=== PATIENT | female | born 1945 | race Caucasian/White ===

== ENCOUNTER → 2019-01-12 | Outpatient (REF) | payer MEDICARE ==
[~2019-01-12] MED LIST: COUM1TAB18 PO; TYLE325T5 PO; VITA500046 PO; aleve OR
[2019-01-12 16:48] LABS: ALBUMIN 3.8 GM/DL (3.2-5.2); BILIRUBIN,DIRECT 0.2 MG/DL (0.0-0.2); CHOLESTEROL RISK RATIO 3.239 (<5); TOTAL PROTEIN 6.8 GM/DL (6.4-8.2)
== END ==
LOC: M LABDRWCV 16:09
PROVIDERS: ATTEND Internal Medicine Cardiovascular Disease
DX: E78.00 Pure hypercholesterolemia, unspecified (principal)

== ENCOUNTER → 2019-09-12 | Outpatient (CLI) | payer MEDICARE ==
[2019-09-12 13:16] LABS: HEMATOCRIT 37.5 % (36.0-47.0); MEAN CORPUSCULAR VOLUME 87.6 fl (80.0-96.0); PLATELET COUNT, AUTOMATED 214 10^3/uL (150-450); RED BLOOD COUNT 4.28 10^6/uL (4.00-5.40); WHITE BLOOD COUNT 6.4 10^3/uL (4.0-10.0)
[2019-09-12 13:37] LABS: ALBUMIN 3.6 GM/DL (3.2-5.2); ALT/SGPT 22 U/L (12-78); BILIRUBIN,TOTAL 0.8 MG/DL (0.2-1.0); BLOOD UREA NITROGEN 20 MG/DL (7-18); CARBON DIOXIDE LEVEL 30 MEQ/L (21-32); CHLORIDE LEVEL 104 MEQ/L (98-107); CHOLESTEROL LEVEL 164 MG/DL (<200); CHOLESTEROL RISK RATIO 3.215 (<5); CREATININE FOR GFR 0.83 MG/DL (0.55-1.30); GLOMERULAR FILTRATION RATE > 60.0 (>39); GLUCOSE, FASTING 103 MG/DL (70-100); HDL CHOLESTEROL 51 MG/DL (>40); LDL CHOLESTEROL 98 MG/DL (<100); MAGNESIUM LEVEL 2.1 MG/DL (1.8-2.4); NON-HDL-C 113 MG/DL; POTASSIUM SERUM 4.6 MEQ/L (3.5-5.1); SODIUM LEVEL 141 MEQ/L (136-145); TOTAL PROTEIN 6.7 GM/DL (6.4-8.2); TRIGLYCERIDES LEVEL 74 MG/DL (<150)
== END ==
LOC: M LAB 11:39
PROVIDERS: ATTEND Physician Assistant
DX: E78.00 Pure hypercholesterolemia, unspecified (principal); I48.92 Unspecified atrial flutter; I11.9 Hypertensive heart disease without heart failure

== ENCOUNTER 2021-08-14 18:22 | Inpatient (IN) | payer MEDICARE ==
[~2021-08-14] VITALS: Ht 170.2 cm; Wt 66.4 kg
[2021-08-14] MEDS ORDERED: ATOR40TA75 PO ×2 (18:34→23:07)
[2021-08-14] MEDS ORDERED: ATEN25TA PO ×2 (18:34→23:07)
[2021-08-14] MEDS ORDERED: NS 1,000 ML IV SCH (18:35)
--- NOTE | 2021-08-14 19:07 | REP ---
INDICATION: Altered Mental Status. COMPARISON: 08/20/2013. TECHNIQUE: Single portable AP view of the chest was performed. FINDINGS: There is no acute infiltrate or pulmonary edema. Lungs are clear. The heart is not significantly enlarged. The mediastinal silhouette is unremarkable. The visualized osseous structures are intact.A left pacemaker is again noted. IMPRESSION: No acute pulmonary disease. <Electronically signed by David Ames > 08/14/21 0430
--- NOTE | 2021-08-14 19:17 | REPVR ---
PROCEDURE INFORMATION: Exam: CT Head Without Contrast Exam date and time: 08/14/2021 7:02 PM Age: 76 years old Clinical indication: Altered mental status/memory loss TECHNIQUE: Imaging protocol: Computed tomography of the head without contrast. Radiation optimization: All CT scans at this facility use at least one of these dose optimization techniques: automated exposure control; mA and/or kV adjustment per patient size (includes targeted exams where dose is matched to clinical indication); or iterative reconstruction. COMPARISON: No relevant prior studies available. FINDINGS: Brain: There are mild periventricular and subcortical lucencies consistent with chronic microvascular ischemic changes.The borrero-white differentiation is maintained. No hemorrhage. No edema. Cerebral ventricles: No ventriculomegaly. Paranasal sinuses: Visualized sinuses are unremarkable. No fluid levels. Mastoid air cells: Visualized mastoid air cells are well aerated. Bones/joints: Unremarkable. No acute fracture. Soft tissues: Unremarkable. IMPRESSION: No acute intracranial abnormality. Chronic microvascular ischemic changes. Electronically signed by: Manolo Duval On 08/14/2021 19:16:32 PM
--- OUTSIDE RECORDS SUMMARY | 2021-08-14 19:22 | CCD | Continuity of Care Document ---
Author Author Gemini CAMARA MD Organization Unknown Address [place] [address] Phone [phone] Care Team Providers Care Stylist Assistant Name Role Phone [facility] AUTM [phone] Problems Active Problems Provider Date Sinus node dysfunction Yo Jones NP Onset: 08/26/2013 Cardiac pacemaker in situ Yo Jones NP Onset: 013 Aftercare Unspecified Encounter Yo Jones NP Onset: 1 10/26/2012 Electrocardiogram abnormal Mercedes Lin NP Onset: 2014 Essential hypertension Mercedes Lin NP Onset: 02/06/2015 Hyperlipidemia screening Mercedes Lin NP Onset: 02/07/20 15 Obesity Mercedes Lin NP Onset: 02/06/2015 Benign hypertensive heart disease without congestive h eart failure Winston Camara MD Onset: 12/13/2018 Body mass index 30+ - obesity Winston Camara MD Onset: Atrial flutter Winston Camara MD Onset: 12/13/2018 Cardiomegaly Winston Camara MD Onset: 12/13/2018 Heart murmur Winston Camara MD Onset: 12/13/2018 Pure hypercholesterolemia Winston Camara MD Onset: 019 Aneurysm of thoracic aorta Winston Camara MD Onset: 2018 Social History Type Date Description Comments Sex Unknown ETOH Use Does not consume alcohol Tobacco Use Start: Unknown End: Unknown Patient is a former smoker up to 1/2 ppd x 11 yrs, quit in early Smoking Status Reviewed: 08/10/19 Patient is a former smoker up to 1/2 ppd x 11 yrs, quit in early Exercise Type/Frequency Does housework daily Exercise Type/Frequency Does yardwork twice a we ek Exercise Type/Frequency Does gardening 5 times a week spring to fall Exercise Type/Frequency Walks sporadically Exercise Limitations None Allergies, Adverse Reactions, Alerts Description No Known Drug Allergies Medications Active Medications SIG Qnty Indications Ordering Provide r Date Atorvastatin Calcium 40mg Tablets 1 by mouth every night at bedtime 90tabs E78.00 Winston Camara MD 08/10/2019 Atenolol 25mg Tablets 1 by mouth every day 90tabs Winston Camara MD 07/08/2019 Aspirin 81 Low Dose 81mg Chewtabs 1 by mouth every day 90units I48.92 Winston Camara MD 12/13/2018 Calcium 600/Vitamin D3 628-413mg-Qcjb Tablets 1 tab po daily Unknown 12/12/2018 Fish Oil 1200mg Capsules 1 caps by mouth once daily Unknown 12/12/2018 Multi For Her Tablets 1 by mouth every day Unknown 02/05/2015 Tylenol 325mg Tablets 1-2 po as directed, prn Unknown 08/16/2013 Immunizations Description No Information Available Vital Signs Date Vital Result Comment 08/10/2019 11:39am Weight 139.00 lb Home Weight 139lb home weight Height 63 inches 5'3" BMI (Body Mass Index) 24.6 kg/m2 Heart Rate 88 /min Regular Respiratory Rate 16 /min BP Systolic Right Arm 128 mmHg Sitting, regular c uff BP Diastolic Right Arm 72 mmHg Sitting, regular cuff BP Systolic Left Arm 126 mmHg Sitting BP Diastolic Left Arm 72 mmHg Sitting 02/08/2019 11:26am Weight 152.00 lb Home Weight 154lb home weight Height 63 inches 5'3" BMI (Body Mass Index) 26.9 kg/m2 Heart Rate 80 /min Regular Respiratory Rate 16 /min BP Systolic Right Arm 130 mmHg Sitting, regular c uff BP Diastolic Right Arm 78 mmHg Sitting, regular cuff Results Description No Information Available Procedures Date Code Description Status 05/10/2021 83999 Chronic Care MGMT 20 Mins Clinical Staff Time Per Calendar Month Completed 05/10/2021 98726 Chronic Care Management Services Ea Addl 20 Min Completed 04/23/2021 42880 Remote Pacemaker/Cardio-Defibril lator Data Acquistion Completed 04/23/2021 18021 Remote Interrogation Device Eval Pacemaker System Up To 90 Days Completed 03/08/2021 41031 Chronic Care MGMT 20 Mins Clinical Staff Time Per Calendar Month Completed 02/08/2021 05406 Chronic Care MGMT 20 Mins Clinical Staff Time Per Calendar Month Completed 01/21/2021 43219 Remote Pacemaker/Cardio-Defibril lator Data Acquistion Completed 01/21/2021 38154 Remote Interrogation Device Eval Pacemaker System Up To 90 Days Completed 01/07/2021 89261 Chronic Care MGMT 20 Mins Clinical Staff Time Per Calendar Month Completed 01/07/2021 39871 Chronic Care Management Services Ea Addl 20 Min Completed Medical Devices Description No Information Available Encounters Type Date Location Provider Dx Diagnosis Office Visit 05/10/2021 9:27a Main Office Winston Camara MD E78.00 Pure hypercholesterolemia, unspecified I11.9 Hypertensive heart disease w [facility] heart failure Office Visit 03/08/2021 1:14p Main Office Winston Camara MD E78.00 Pure hypercholesterolemia, unspecified I49.5 Sick sinus syndrome I11.9 Hypertensive heart disease w [facility] heart failure Office Visit 02/08/2021 2:56p Main Office Winston Camara MD E78.00 Pure hypercholesterolemia, unspecified I49.5 Sick sinus syndrome I11.9 Hypertensive heart disease w [facility] heart failure Office Visit 01/07/2021 1:14p Main Office Winston Camara MD E78.00 Pure hypercholesterolemia, unspecified I49.5 Sick sinus syndrome I11.9 Hypertensive heart disease w [facility] heart failure Assessments Date Code Description Provider 05/10/2021 E78.00 Pure hypercholesterolemia, unspe cified Winston Camara MD 05/10/2021 I11.9 Hypertensive heart disease witho ut heart failure Winston Camara MD 04/23/2021 Z95.0 Presence of cardiac pacemaker [facility] 03/08/2021 E78.00 Pure hypercholesterolemia, unspe cified Winston Camara MD 03/08/2021 I49.5 Sick sinus syndrome Winston gonzalez MD 03/08/2021 I11.9 Hypertensive heart disease witho ut heart failure Winston Camara MD 02/08/2021 E78.00 Pure hypercholesterolemia, unspe cified Winston Camara MD 02/08/2021 I49.5 Sick sinus syndrome Winston gonzalez MD 02/08/2021 I11.9 Hypertensive heart disease witho ut heart failure Winston Camara MD 01/21/2021 Z95.0 Presence of cardiac pacemaker [facility] 01/07/2021 E78.00 Pure hypercholesterolemia, unspe cified Winston Camara MD 01/07/2021 I49.5 Sick sinus syndrome Winston gonzalez MD 01/07/2021 I11.9 Hypertensive heart disease witho ut heart failure Winston Camara MD Plan of Treatment Future Appointment(s):* 07/08/2021 10:15 am - Marika Padilla PA-C at Main Office * 07/23/2021 11:15 am - Marika Padilla PA-C at Main Office 08/10/2019 - Marika Padilla PA-C* I11.9 Hypertensive heart disease without heart failure * R94.31 Abnormal electrocardiogram [ECG] [EKG] * I48.92 Unspecified atrial flutter * E78.00 Pure hypercholesterolemia, unspecified* New Medication:* Atorvastatin Calcium 40 mg - 1 by mouth every night at bedtime * Recommendations:* 1. Restart Atorvastatin 40mg 1 pill every evening. 2. Do fasting lab work in 1 month. * I71.2 Thoracic aortic aneurysm, without rupture * I49.5 Sick sinus syndrome * Z95.0 Presence of cardiac pacemaker * All * Follow up:* 6 month follow up. Functional Status Functional Condition Comment Date Status Independent with all ADL's Activ e Mental Status Description No Information Available Referrals Description No Information Available
--- OUTSIDE RECORDS SUMMARY | 2021-08-14 19:22 | CCD ---
Author Author [facility] Organization [facility] Address Unknown Phone Unavailable Care Team Providers Care Light Equipment Operator Name Role Phone Wale SARMIENTO MD Unavailable Unavailable Wale SARMIENTO MD Unavailable Unavailable Wale SARMIENTO MD Unavailable Unavailable Wale SARMIENTO MD Unavailable Unavailable Wale SARMIENTO MD Unavailable Unavailable Wale SARMIENTO MD Unavailable Unavailable Wale SARMIENTO MD Unavailable Unavailable Wale SARMIENTO MD Unavailable Unavailable Wale SARMIENTO MD Unavailable Unavailable Wale SARMIENTO MD Unavailable Unavailable Wale SARMIENTO MD Unavailable Unavailable Wale SARMIENTO MD Unavailable Unavailable Wale SARMIENTO MD Unavailable Unavailable Wale SARMIENTO MD Unavailable Unavailable Wale SARMIENTO MD Unavailable Unavailable Wale SARMIENTO MD Unavailable Unavailable Wale SARMIENTO MD Unavailable Unavailable Wale SARMIENTO MD Unavailable Unavailable Wale SARMIENTO MD Unavailable Unavailable Wale SARMIENTO MD Unavailable Unavailable Wale SARMIENTO MD Unavailable Unavailable Wale SARMIENTO MD Unavailable Unavailable Wale SARMIENTO MD Unavailable Unavailable Wale SARMIENTO MD Unavailable Unavailable Wale SARMIENTO MD Unavailable Unavailable Wale SARMIENTO MD Unavailable Unavailable Wale SARMIENTO MD Unavailable Unavailable Wale SARMIENTO MD Unavailable Unavailable Wale SARMIENTO MD Unavailable Unavailable Wale SARMIENTO MD Unavailable Unavailable Wale SARMIENTO MD Unavailable Unavailable Wale SARMIENTO MD Unavailable Unavailable Wale SARMIENTO MD Unavailable Unavailable Wale SARMIENTO MD Unavailable Unavailable Wale SARMIENTO MD Unavailable Unavailable Wale SARMIENTO MD Unavailable Unavailable Wale SARMIENTO MD Unavailable Unavailable Wale SARMIENTO MD Unavailable Unavailable Wale SARMIENTO MD Unavailable Unavailable Wale SARMIENTO MD Unavailable Unavailable Wale SARMIENTO MD Unavailable Unavailable Wale SARMIENTO MD Unavailable Unavailable Wale SARMIENTO MD Unavailable Unavailable Wale SARMIENTO MD Unavailable Unavailable Wale SARMIENTO MD Unavailable Unavailable Wale SARMIENTO MD Unavailable Unavailable Wale SARMIENTO MD Unavailable Unavailable Wale SARMIENTO MD Unavailable Unavailable Wale SARMIENTO MD Unavailable Unavailable Wale SARMIENTO MD Unavailable Unavailable Wale SARMIENTO MD Unavailable Unavailable Wale SARMIENTO MD Unavailable Unavailable Wale SARMIENTO MD Unavailable Unavailable Wale SARMIENTO MD Unavailable Unavailable Trickey, J Deanne PA Unavailable Unavailable Trickey, J Deanne PA Unavailable Unavailable Trickey, J Deanne PA Unavailable Unavailable Trickey, J Deanne PA Unavailable Unavailable Trickey, J Deanne PA Unavailable Unavailable Trickey, J Deanne PA Unavailable Unavailable Trickey, J Deanne PA Unavailable Unavailable Trickey, J Deanne PA Unavailable Unavailable Trickey, J Deanne PA Unavailable Unavailable Trickey, J Deanne PA Unavailable Unavailable Trickey, J Deanne PA Unavailable Unavailable Trickey, J Deanne PA Unavailable Unavailable Trickey, J Deanne PA Unavailable Unavailable Trickey, J Deanne PA Unavailable Unavailable Trickey, J Deanne PA Unavailable Unavailable Trickey, J Deanne PA Unavailable Unavailable Trickey, J Deanne PA Unavailable Unavailable Trickey, J Deanne PA Unavailable Unavailable Trickey, J Deanne PA Unavailable Unavailable Trickey, J Deanne PA Unavailable Unavailable Trickey, J Deanne PA Unavailable Unavailable Trickey, J Deanne PA Unavailable Unavailable Trickey, J Deanne PA Unavailable Unavailable Trickey, J Deanne PA Unavailable Unavailable Trickey, J Deanne PA Unavailable Unavailable Trickey, J Deanne PA Unavailable Unavailable Trickey, J Deanne PA Unavailable Unavailable Trickey, J Deanne PA Unavailable Unavailable Trickey, J Deanne PA Unavailable Unavailable Trickey, J Deanne PA Unavailable Unavailable Trickey, J Deanne PA Unavailable Unavailable Trickey, J Deanne PA Unavailable Unavailable Trickey, J Deanne PA Unavailable Unavailable Trickey, J Deanne PA Unavailable Unavailable Trickey, J Deanne PA Unavailable Unavailable Trickey, J Deanne PA Unavailable Unavailable Trickey, J Deanne PA Unavailable Unavailable Trickey, J Deanne PA Unavailable Unavailable Trickey, J Deanne PA Unavailable Unavailable Trickey, J Deanne PA Unavailable Unavailable Trickey, J Deanne PA Unavailable Unavailable Trickey, J Deanne PA Unavailable Unavailable Trickey, J Deanne PA Unavailable Unavailable Trickey, J Deanne PA Unavailable Unavailable Trickey, J Deanne PA Unavailable Unavailable Trickey, J Deanne PA Unavailable Unavailable Trickey, J Deanne PA Unavailable Unavailable Trickey, J Deanne PA Unavailable Unavailable Trickey, J Deanne PA Unavailable Unavailable Re-disclosure Warning The records that you are about to access may contain information from federally-assisted alcohol or drug abuse programs. If such information is present, then the following federally mandated warning applies: This information has been disclosed to you from records protected by federal confidentiality rules (42 CFR part 2). The federal rules prohibit you from making any further disclosure of this information unless further disclosure is expressly permitted by the written consent of the person to whom it pertains or as otherwise permitted by 42 CFR part 2. A general authorization for the release of medical or other information is NOT sufficient for this purpose. The Federal rules restrict any use of the information to criminally investigate or prosecute any alcohol or drug abuse patient.The records that you are about to access may contain highly sensitive health information, the redisclosure of which is protected by Article 27-F of the [facility] Public Health law. If you continue you may have access to information: Regarding HIV / AIDS; Provided by facilities licensed or operated by the [facility] Office of Mental Health; or Provided by the [facility] Office for People With Developmental Disabilities. If such information is present, then the following [facility] mandated warning applies: This information has been disclosed to you from confidential records which are protected by state law. State law prohibits you from making any further disclosure of this information without the specific written consent of the person to whom it pertains, or as otherwise permitted by law. Any unauthorized further disclosure in violation of state law may result in a fine or shelter sentence or both. A general authorization for the release of medical or other information is NOT sufficient authorization for further disc losure. Family History Family Member Name Family Member Gender Family Member Status Date o f Status Description Data Source(s) Unknown Male Problem [facility] ([facility] Encounters Encounter Providers Location Date Indications Data Source(s ) Office Visit Attender: JUDE SARMIENTO MD Main Office 05/10/2021 09:27:0 0 AM EDT [facility] ([facility]) Office Visit Attender: JUDE SARMIENTO MD Main Office 03/08/2021 01:14:0 0 PM EDT [facility] ([facility]) Office Visit Attender: JUDE SARMIENTO MD Main Office 02/08/2021 02:56:0 0 PM EDT [facility] ([facility]) Office Visit Attender: JUDE SARMIENTO MD Main Office 01/07/2021 01:14:0 0 PM EDT [facility] ([facility]) Office Visit Attender: JUDE SARMIENTO MD Main Office 11/28/2020 06:11:0 0 AM EST [facility] ([facility]) Office Visit Attender: JUDE SARMIENTO MD Main Office 10/22/2020 12:57:0 0 PM EST [facility] ([facility]) Office Visit Attender: JUDE SARMIENTO MD Main Office 09/12/2020 07:52:0 0 AM EST [facility] ([facility]) Office Visit Attender: JUDE SARMIENTO MD Main Office 08/15/2020 10:25:0 0 AM EDT [facility] ([facility]) Office Visit Attender: Deanne JOSEPH Main office - [facility] 08/10/2020 08:00:00 AM EDT [facility] ([facility] Office Visit Attender: JUDE SARMIENTO MD Main Office 07/12/2020 02:34:0 0 PM EDT [facility] ([facility]) Office Visit Attender: JUDE SARMIENTO MD Main Office 06/15/2020 08:20:0 0 AM EDT [facility] ([facility]) Medications Medication Brand Name Start Date Product Form Dose Route Admi nistrative Instructions Pharmacy Instructions Status Indications Reaction Description Data Source(s) atorvastatin 40 MG Oral Tablet ATORVASTATIN CALCIUM 07/04/2021 1 2:00:00 AM EDT tablet 90 TAKE ONE TABLET BY MOUTH AT BEDT SHIVAM TAKE ONE TABLET BY MOUTH AT BEDTIME SOLD: 07/12/2021 [facility] atorvastatin 40 MG Oral Tablet ATORVASTATIN CALCIUM 09/26/2020 1 2:00:00 AM EST tablet 90 TAKE ONE TABLET BY MOUTH AT BEDT SHIVAM TAKE ONE TABLET BY MOUTH AT BEDTIME SOLD: 12/20/2020 [facility] 25 mg 09/26/2020 12:00:00 AM EST tablet 90 TAKE ONE TABLET BY MOUTH EVERY DAY TAKE ONE TABLET BY MOUTH EVERY DAY SOLD: 04/01/2021 [facility] atorvastatin 40 MG Oral Tablet ATORVASTATIN CALCIUM 09/26/2020 1 2:00:00 AM EST tablet 90 TAKE ONE TABLET BY MOUTH AT BEDT SHIVAM TAKE ONE TABLET BY MOUTH AT BEDTIME SOLD: 09/27/2020 [facility] 25 mg 09/26/2020 12:00:00 AM EST tablet 90 TAKE ONE TABLET BY MOUTH EVERY DAY TAKE ONE TABLET BY MOUTH EVERY DAY SOLD: 07/01/2021 [facility] atorvastatin 40 MG Oral Tablet ATORVASTATIN CALCIUM 09/26/2020 1 2:00:00 AM EST tablet 90 TAKE ONE TABLET BY MOUTH AT BEDT SHIVAM TAKE ONE TABLET BY MOUTH AT BEDTIME SOLD: 04/01/2021 [facility] Atenolol 25 MG Oral Tablet ATENOLOL 09/26/2020 12:00:00 AM EST tablet 90 TAKE ONE TABLET BY MOUTH EVERY DAY TAKE ONE TABLET BY MOUTH EVERY DAY SOLD: 12/20/2020 [facility] Atenolol 25 MG Oral Tablet ATENOLOL 09/26/2020 12:00:00 AM EST tablet 90 TAKE ONE TABLET BY MOUTH EVERY DAY TAKE ONE TABLET BY MOUTH EVERY DAY SOLD: 09/27/2020 [facility] atorvastatin 40 MG Oral Tablet ATORVASTATIN CALCIUM 08/11/2019 1 2:00:00 AM EDT tablet 90 TAKE ONE TABLET BY MOUTH AT BEDT SHIVAM TAKE ONE TABLET BY MOUTH AT BEDTIME SOLD: 06/25/2020 [facility] 25 mg 07/08/2019 12:00:00 AM EDT tablet 90 TAKE ONE TABLET BY MOUTH EVERY DAY TAKE ONE TABLET BY MOUTH EVERY DAY SOLD: 06/25/2020 [facility] Insurance Providers Payer name Policy type / Coverage type Policy ID Covered green party ID Covered green party's relationship to jones Policy Jones Plan Information Medicare (Part B) Medicare Primary [id number] Self 1 [id number] Medicare (Part B) Medicare Primary [id number] Self 1 [id number] Medicare (Part B) Medicare Primary [id number] Self 1 [id number] Medicare Medicare Primary [id number] Self [employer] 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 Self [id number] Medicare Part B Medicare Primary [id number] Self [employer] Commercial [id number] Self AARP HEALTH CARE OPTIONS [id number] SP [id number] MEDICARE [id number] SP [id number] D AARP HEALTH CARE OPTIONS [id number] SP [id number] Medicare Medicare Primary [id number] Self A[employer] Healthcare Options Medigap Part B [id number] Self AARP S [id number] S [id number] AARP S [id number] S [id number] 2 MEDICARE P [id number] S [id number] D WELLCARE [id number] SP [id number] Well[employer] MCR - To Ppo Commercial [id number] [facility] [id number] [facility]-Medicare Part B [id number] ANSI-Commercial [id number] Problems, Conditions, and Diagnoses No Information Surgeries/Procedures Procedure Description Date Indications Data Source(s) Chronic Care Management Services Ea Addl 20 Min 2020 12:00:00 AM EDT [facility] ([facility]) Chronic Care MGMT 20 Mins Clinical Staff Time Per Calendar [facility] 05/10/2021 12:00:00 AM EDT [facility] ([facility] INTERROGATION EVAL REMOTE </90 D 1/2/LINE ANALYST LEAD PM 04/23 12:00:00 AM EDT [facility] ([facility]) INTERROGATION REMOTE </90 D MEDICAL LABORATORY TECHNICAL OFFICER REVIEW 04/23/20 12:00:00 AM EDT [facility] ([facility]) Chronic Care MGMT 20 Mins Clinical Staff Time Per Calendar [facility] 03/08/2021 12:00:00 AM EDT [facility] ([facility] Chronic Care MGMT 20 Mins Clinical Staff Time Per Calendar [facility] 02/08/2021 12:00:00 AM EDT [facility] ([facility] INTERROGATION EVAL REMOTE </90 D 1/2/LINE ANALYST LEAD PM 01/21 12:00:00 AM EDT [facility] ([facility]) INTERROGATION REMOTE </90 D MEDICAL LABORATORY TECHNICAL OFFICER REVIEW 01/22/20 12:00:00 AM EDT [facility] ([facility]) Chronic Care Management Services Ea Addl 20 Min 2020 12:00:00 AM EDT [facility] ([facility]) Chronic Care MGMT 20 Mins Clinical Staff Time Per Calendar [facility] 01/07/2021 12:00:00 AM EDT [facility] ([facility]) Chronic Care MGMT 20 Mins Clinical Staff Time Per Calendar [facility] 11/28/2020 12:00:00 AM EST [facility] ([facility] Chronic Care MGMT 20 Mins Clinical Staff Time Per Calendar [facility] 10/22/2020 12:00:00 AM EST [facility] ([facility] INTERROGATION EVAL REMOTE </90 D 1/2/LINE ANALYST LEAD PM 10/18 12:00:00 AM EST [facility] ([facility]) INTERROGATION REMOTE </90 D MEDICAL LABORATORY TECHNICAL OFFICER REVIEW 10/18/20 12:00:00 AM EST [facility] ([facility]) INTERROGATION EVAL REMOTE </90 D 1/2/LINE ANALYST LEAD PM 07/19 12:00:00 AM EDT [facility] ([facility]) INTERROGATION REMOTE </90 D MEDICAL LABORATORY TECHNICAL OFFICER REVIEW 07/19/20 12:00:00 AM EDT [facility] ([facility]) Results No Information Social History No Information
--- OUTSIDE RECORDS SUMMARY | 2021-08-14 19:22 | CCD | Continuity of Care Document ---
Author Author Gemini CAMARA MD Organization Unknown Address [place] [address] Phone [phone] Care Team Providers Care Day Care Supervisor Name Role Phone [facility] AUTM [phone] Problems Active Problems Provider Date Sinus node [...] Winston Camara MD 12/13/2018 Calcium 600/Vitamin D3 [id number] Tablets 1 tab po daily Unknown 12/12/2018 [...] Available Procedures Date Code Description Status 05/10/2021 50559 Chronic Care MGMT 20 Mins Clinical Staff Time Per Calendar Month Completed 05/10/2021 41979 Chronic Care Management Services Ea Addl 20 Min Completed 04/23/2021 18139 Remote Pacemaker/Cardio-Defibril lator Data Acquistion Completed 04/23/2021 87190 Remote Interrogation Device Eval Pacemaker System Up To 90 Days Completed 03/08/2021 18359 Chronic Care MGMT 20 Mins Clinical Staff Time Per Calendar Month Completed 02/08/2021 22326 Chronic Care MGMT 20 Mins Clinical Staff Time Per Calendar Month Completed 01/21/2021 12503 Remote Pacemaker/Cardio-Defibril lator Data Acquistion Completed 01/21/2021 04864 Remote Interrogation Device Eval Pacemaker System Up To 90 Days Completed 01/07/2021 92723 Chronic Care MGMT 20 Mins Clinical Staff Time Per Calendar Month Completed 01/07/2021 34546 Chronic Care Management Services Ea Addl 20 Min Completed Medical Devices Description No Information Available Encounters Type Date Location Provider Dx Diagnosis Office Visit 05/10/2021 9:27a Main Office Winston Camara MD E78.00 Pure hypercholesterolemia, unspecified I11.9 Hypertensive heart disease w [facility] heart failure Office Visit 03/08/2021 1:14p Main Office Winston Camara MD E78.00 Pure hypercholesterolemia, unspecified I49.5 Sick sinus syndrome I11.9 Hypertensive heart disease w [facility] heart failure Office Visit 02/08/2021 2:56p Main Office Winston Camara MD E78.00 Pure hypercholesterolemia, unspecified I49.5 Sick sinus syndrome I11.9 Hypertensive heart disease w [facility] heart failure Office Visit 01/07/2021 1:14p Main Office Winston Camara MD E78.00 Pure hypercholesterolemia, unspecified I49.5 Sick sinus syndrome I11.9 Hypertensive heart disease w [facility] heart failure Assessments Date Code Description Provider [...]
[2021-08-14 19:41] LABS: BASO # 0.1 10^3/uL (0.0-0.2); BASO % 0.4 % (0.0-1.0); HEMATOCRIT 31.8 % (36.0-47.0); HEMOGLOBIN 9.7 g/dl (12.0-15.5); LYMPH # 0.7 10^3/uL (1.5-5.0); LYMPH % 4.6 % (24.0-44.0); MEAN CORPUSCULAR HEMOGLOBIN 24.6 pg (27.0-33.0); MEAN CORPUSCULAR HGB CONC 30.5 g/dl (32.0-36.5); MEAN CORPUSCULAR VOLUME 80.5 fl (80.0-96.0); MONO # 0.4 10^3/uL (0.0-0.8); MONO % 2.6 % (2.0-8.0); NEUTROPHILS # 14.1 10^3/uL (1.5-8.5); NEUTROPHILS % 91.8 % (36.0-66.0); PLATELET COUNT, AUTOMATED 430 10^3/uL (150-450); RED BLOOD COUNT 3.95 10^6/uL (4.00-5.40); WHITE BLOOD COUNT 15.3 10^3/uL (4.0-10.0)
[2021-08-14 20:08] LABS: ACETAMINOPHEN LEVEL < 2.0 UG/ML (10.0-30.0); ALBUMIN 2.7 GM/DL (3.2-5.2); ALT/SGPT 15 U/L (12-78); BILIRUBIN,DIRECT 0.2 MG/DL (0.0-0.2); BILIRUBIN,TOTAL 0.7 MG/DL (0.2-1.0); BLOOD UREA NITROGEN 16 MG/DL (7-18); CALCIUM LEVEL 11.1 MG/DL (8.8-10.2); CARBON DIOXIDE LEVEL 29 MEQ/L (21-32); CHLORIDE LEVEL 103 MEQ/L (98-107); CK-MB VALUE MASS < 1.0 NG/ML (<3.6); CPK CREATINE PHOSPHOKINASE 18 U/L (26-192); CREATININE FOR GFR 0.78 MG/DL (0.55-1.30); ETHYL ALCOHOL (ETHANOL) < 0.003 % (0.000-0.010); GLOMERULAR FILTRATION RATE > 60.0 (>39); GLUCOSE, FASTING 132 MG/DL (70-100); MB/CK RELATIVE INDEX 5.56 (< OR =4); SALICYLATE LEVEL < 1.7 MG/DL (5.0-30.0); SODIUM LEVEL 138 MEQ/L (136-145); TOTAL PROTEIN 6.6 GM/DL (6.4-8.2); TROPONIN I < 0.02 NG/ML (< 0.10)
[2021-08-14 20:33] LABS: RSV AMPLIFICATION NEGATIVE (NEGATIVE)
--- NOTE | 2021-08-14 20:49 | HPEPDOC ---
[facility] Medical History & Physical Date of Admission Aug 14, 2021 Date of Service: Aug 14, 2021 Primary Care Physician: WANDA BLANCA PA-C Attending Physician: UBALDO GONZALES MD History and Physical TIME OF SERVICE: 929pm CHIEF COMPLAINT: seizure HISTORY OF PRESENT ILLNESS: The history was obtained from INLETTER Nnea, the patient couldnt recall all of the events leading to her arrival in the hospital. a 76 yr old F was diagnosed with a seizure disorder shortly after having right total hip arthroplasty in 2012. Based on consultation note it was felt that the seizures were likely due to the acute stress of the surgery and possibly sinus node dysfunction; the plan was to obtain an EEG and hold of starting seizure meds if the EEG was unremarkable. The discharge summary from the same admission was brief and didnt mention if the patient was discharged with anti-epileptic medications. Today, while seated in a chair son saw her have convulsions with repeated episodes of hitting the back of her head on the recliner that she was sitting in. When EMS arrived the patient was confused and her FSBS was 149. At the time of my as sessment was alert and conversant, but had lapses in her memory. The CHIEF NURSING EXECUTIVE informed Etienne that the patient had a large mass protruding out of her vagina; when I asked the patient about the mass she didnt seem aware of it but admitted to occasionally having vaginal bleeding. REVIEW OF SYSTEMS: incomplete because the patient has difficulties remembering PAST MEDICAL/ SURGICAL HISTORY: (8 vaginal deliveries), Seizure disorder (2012), sinus node dysfunction/ sinus arrest s/p dual chamber pacemaker placement (2012), essential HTN, DLP, Bakers cyst at left knee, Osteoporosis ( chronic thoracic and lumbar vertebral fx), newly diagnosed bilateral vulvar masses, right total hip arthroplasty (2012) FAMILY HISTORY: (per chart review) mother had cancer, her oldest daughter and y oungest son , three of her children have seizure disorder (one of them developed the seizures after a head injury) SOCIAL HISTORY: She quit smoking, one of her sons recently moved in with her, 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 HOME MEDICATIONS: Please see below. PHYSICAL EXAMINATION: Vital Signs Date Time Temp Pulse Resp B/P (MAP) Pulse Ox O2 Delivery O2 Flow Rate FiO2 08/14/21 18:36 133/59 (83) 08/14/21 18:37 116 98 08/14/21 18:38 98.2 08/14/21 19:18 16 Room Air GENERAL APPEARANCE: slim build and developed/ NAD HEENT: EOMI / MMM&P CARDIOVASCULAR: RRR/NMRG / no BLE edema LUNGS: CTAB on RA ABDOMEN: contour scaphoid/ soft & NT w palpation MUSCULOSKELETAL: temporal wasting / ADAN x 4 extremities / muscle wasting at quadriceps INTEGUMENT: she is not flushed, pale or diaphoretic NEUROLOGICAL: CN 2-12 grossly intact except hearing / face symmetrical / speech not dysarthric / strength 5/5 except at left hip flexors 4 PSYCHIATRIC: A&O / able to understand and follow all commands LABORATORY DATA: IMAGING: Chest xray IMPRESSION: No acute pulmonary disease. CT head IMPRESSION: No acute intracranial abnormality. Chronic microvascular ischemic changes. CT abd/pelvis FINDINGS: Liver: Normal. No mass. Gallbladder and bile ducts: Normal. No calcified stones. No ductal dilation. Pancreas: Normal. No ductal dilation. Spleen: Normal. No splenomegaly. Adrenal glands: Normal. No mass. Kidneys and ureters: Multiple cysts in the right kidney with the largest measuring 1.6 cm in the midpole region. Multiple cysts in the left kidney with the largest measuring 1.8 cm at the upper pole. Stomach and bowel: Diverticulosis of the sigmoid colon. Appendix: No evidence of appendicitis. Intraperitoneal space: Unremarkable. No free air. No significant fluid collec tion. Vasculature: Unremarkable. No abdominal aortic aneurysm. Lymph nodes: Unremarkable. No enlarged lymph nodes. Urinary bladder: Unremarkable as visualized. Reproductive: There is lobulated large necrotic mass in bilateral vulva extending to the subcutaneous tissues measuring approximately 9.1 x 9.5 x 11 cm. Bones/joints: Right total hip arthroplasty. Chronic compression fractures of the thoracic and lumbar vertebra. Diffuse demineralization of the bones. Soft tissues: Unremarkable. CT chest IMPRESSION: No acute abnormality. Moderate size hiatal hernia. MICROBIOLOGY: Respiratory panel negative ASSESSMENT: is a 76 yr old F w a hx of Seizure disorder, sinus node dysfunction/ sinus arrest s/p dual chamber pacemaker placement, HTN, DLP, Osteoporosis & newly diagnosed bilateral vulvar masses who is admitted for evaluation of seizures. PLAN: 1 Seizure disorder -Its unclear what triggered this acute episode Plan: fall precautions/ seizure precautions/ frequent neuro checks / f/u prolactin, UA, EEG / will ask the day time team to place an Neuro consult and ask if the patient needs an MRI brain w gadolinium to rule out mass / load with Keppra 1000mg IV then c/w 500 BID / Ativan 2mg IV Q2H PRN break through seizures 2 Encephalopathy - 2/2 Todds Paresis vs Dementia vs symptomatic hypercalcemia vs other cause TBD Plan: anti-epileptics / neurochecks / if her mental status doesnt improve she will need formal neurocognitive testing (MOCA ) / manage hypercalcemia 3 SIRS Plan: f/u blood cx, UA and lactic acid 4 Vulvar Masses -Not sure if this is the primary or she has a plasmacytoma Plan: will ask the day time team to consult Gyne 5 Normocytic Hypochromic anemia Plan: f/u Iron studies and stool occult 6 Mild Hypercalcemia Possibly due to plasmacytoma, primary hyperparathyroidism or malignancy Plan: f/u Phosphorus, PTH / repeat Ca++ / start NS @ 125ml/H / low Ca diet 7 Essential HTN Plan: atenolol 8 DLP Plan:c/w statin 9 Osteoporosis -Diagnosis confirmed because of her history of multiple chronic vertebral fractures -She also has high serum calcium Plan: f/u serum Vitamin D / because she has vertebral fractures we will check SPEP to screen for plasmacytoma or MM / start Oscal / she will need to with her PCP for a DEXA Scan (if her T score is -3 or lower, in addition to a bisphosphonate she will need to be started on Teriparatide) 10 Sarcopenia BMI is 19.6 Plan: f/u pre-albumin / the day time team may consider placing a fruit i farmworker consult DVT px w Heparin Disposition: home after more than 2 midnights stay (kimberly Farley [phone]) Home Medications Scheduled Atenolol (Atenolol) 25 Mg Tablet, 25 MG PO DAILY Atorvastatin Calcium (Atorvastatin Calcium) 40 Mg Tablet, 40 MG PO DAILY Levetiracetam (Keppra) 250 Mg Tablet, 500 MG PO BID Multivitamins (Thera M Plus Tablet) 1 Each Tablet, 1 TAB PO DAILY Sulfamethoxazole/Trimethoprim (Bactrim Ds Tablet) 1 Each Tablet, 1 TAB PO BID Allergies Coded Allergies: No Known Allergies (Unverified , 08/15/13) A-FIB/CHADSVASC A-FIB History Current/History of A-Fib/PAF?: No Current PO Anticoag Therapy: No UBALDO GONZALES MD Aug 14, 2021 20:49
[2021-08-14] MEDS ORDERED: ACETAMINOPHEN TAB 650MG DOSE (2X325MG) PO PRN (20:50)
[2021-08-14] MEDS ORDERED: MAALOX 30 ML SUSP *UDC PO PRN (20:50)
[2021-08-14] MEDS ORDERED: MOM 30ML SUSPENSION UDC PO PRN (20:50)
[2021-08-14] MEDS ORDERED: levETIRAcetam INJection 1,000 MG in D5W 100 ML IV ONE (20:50)
[2021-08-14] MEDS ORDERED: LIDOCAINE 2% 5ML JELLY UROJET TOP ONE (20:50)
--- OUTSIDE RECORDS SUMMARY | 2021-08-14 21:01 | CCD ---
Author Author [facility] Organization [facility] Address Unknown Phone Unavailable Care Team Providers Care Rough Patcher Name Role Phone Wale SARMIENTO MD Unavailable [...] is protected by Article 27-F of the [facility] Public Health law. If you continue you may have access to information: Regarding HIV / AIDS; Provided by facilities licensed or operated by the [facility] Office of Mental Health; or Provided by the [facility] Office for People With Developmental Disabilities. If such information is present, then the following [facility] mandated warning applies: This information has been [...] law may result in a fine or mcc sentence or both. A general authorization for the release of medical or other information is NOT sufficient authorization for further disc losure. Family History Family Member Name Family Member Gender Family Member Status Date o f Status Description Data Source(s) Unknown Male Problem [facility] ([facility]) Encounters Encounter Providers Location Date Indications Data Source(s ) Office Visit Attender: JUDE SARMIENTO MD Main Office 05/10/2021 09:27:0 0 AM EDT [facility] ([facility]) Office Visit Attender: JUDE SARMIENTO MD Main Office 03/08/2021 01:14:0 0 PM EDT [facility] ([facility]) Office Visit Attender: JUDE SARMIENTO MD Main Office 02/08/2021 02:56:0 0 PM EDT [facility] ([facility]) Office Visit Attender: JUDE SARMIENTO MD Main Office 01/07/2021 01:14:0 0 PM EDT [facility] ([facility]) Office Visit Attender: JUDE SARMIENTO MD Main Office 11/28/2020 06:11:0 0 AM EST [facility] ([facility]) Office Visit Attender: JUDE SARMIENTO MD Main Office 10/22/2020 12:57:0 0 PM EST [facility] ([facility]) Office Visit Attender: JUDE SARMIENTO MD Main Office 09/12/2020 07:52:0 0 AM EST [facility] ([facility]) Office Visit Attender: JUDE SARMIENTO MD Main Office 08/15/2020 10:25:0 0 AM EDT [facility] ([facility]) Office Visit Attender: Deanne JOSEPH Main office - [facility] 08/10/2020 08:00:00 AM EDT [facility] ([facility]) Office Visit Attender: JUDE SARMIENTO MD Main Office 07/12/2020 02:34:0 0 PM EDT [facility] ([facility]) Office Visit Attender: JUDE SARMIENTO MD Main Office 06/15/2020 08:20:0 0 AM EDT [facility] ([facility]) Medications Medication Brand Name Start Date Product [...] type / Coverage type Policy ID Covered democrat ID Covered democrat's relationship to jones Policy Jnoes Plan Information Medicare (Part B) Medicare Primary [id number] Self 1 [id number] Medicare (Part B) Medicare Primary [id number] Self 1 [id number] Medicare (Part B) Medicare Primary [id number] Self 1 [id number] Medicare Medicare Primary [id number] Self ANSI-Health Maintenance Organization (HM O) [id number] [employer] MCR - To Ppo Commercial [id number] Self [id number] Well[employer] MCR - To Ppo Commercial [id number] Self [id number] [employer] Medigap Part B [id number] Self [id number] Medicare Part B Medicare Primary [id number] Self [id number] [employer] Medigap Part B [id number] Self [id number] Medicare Part B Medicare Primary [id number] Self [id number] Medicare Part B Medicare Primary [id number] Self A[employer] Commercial [id number] Self AARP HEALTH CARE OPTIONS [id number] SP [id number] MEDICARE [id number] SP [id number] D AARP HEALTH CARE OPTIONS [id number] SP [id number] Medicare Medicare Primary [id number] Self Aarp Healthcare Options Medigap Part B [id number] Self AARP S [id number] S [id number] AARP S [id number] S [id number] MEDICARE P [id number] S [id number] D WELLCARE [id number] SP [id number] Well[employer] MCR - To Ppo Commercial [id number] [facility] [id number] [facility]-Medicare Part B [id number] ANSI-Commercial [id number] Problems, Conditions, and Diagnoses No Information Surgeries/Procedures Procedure Description Date Indications Data Source(s) Chronic Care Management Services Ea Addl 20 Min 2020 12:00:00 AM EDT [facility] ([facility]) Chronic Care MGMT 20 Mins Clinical Staff Time Per Calendar M [facility] 05/10/2021 12:00:00 AM EDT [facility] ([facility]) INTERROGATION EVAL REMOTE </90 D 1/2/MUSIC SPECIALIST LEAD PM 04/23 12:00:00 AM EDT [facility] ([facility]) INTERROGATION REMOTE </90 D SALES TEACHER REVIEW 04/23/20 12:00:00 AM EDT [facility] ([facility]) Chronic Care MGMT 20 Mins Clinical Staff Time Per Calendar M [facility] 03/08/2021 12:00:00 AM EDT [facility] ([facility]) Chronic Care MGMT 20 Mins Clinical Staff Time Per Calendar M [facility] 02/08/2021 12:00:00 AM EDT [facility] ([facility]) INTERROGATION EVAL REMOTE </90 D 1/2/MUSIC SPECIALIST LEAD PM 01/21 12:00:00 AM EDT [facility] ([facility]) INTERROGATION REMOTE </90 D SALES TEACHER REVIEW 01/22/20 12:00:00 AM EDT [facility] ([facility]) Chronic Care Management Services Ea Addl 20 Min 2020 12:00:00 AM EDT [facility] ([facility]) Chronic Care MGMT 20 Mins Clinical Staff Time Per Calendar M [facility] 01/07/2021 12:00:00 AM EDT [facility] ([facility]) Chronic Care MGMT 20 Mins Clinical Staff Time Per Calendar M [facility] 11/28/2020 12:00:00 AM EST [facility] ([facility]) Chronic Care MGMT 20 Mins Clinical Staff Time Per Calendar M [facility] 10/22/2020 12:00:00 AM EST [facility] ([facility]) INTERROGATION EVAL REMOTE </90 D 1/2/MUSIC SPECIALIST LEAD PM 10/18 12:00:00 AM EST [facility] ([facility]) INTERROGATION REMOTE </90 D SALES TEACHER REVIEW 10/18/20 12:00:00 AM EST [facility] ([facility]) INTERROGATION EVAL REMOTE </90 D 1/2/MUSIC SPECIALIST LEAD PM 07/19 12:00:00 AM EDT [facility] ([facility]) INTERROGATION REMOTE </90 D SALES TEACHER REVIEW 07/19/20 12:00:00 AM EDT [facility] ([facility]) Results No Information Social History No Information
[2021-08-14] MEDS ORDERED: ISOVUE-370 76% 100ML VIAL As Ordered ONE (21:10)
[2021-08-14] MEDS ORDERED: VANCOMYCIN HCL 1,000 MG, VIAL MATE ADAPTER 1 EACH in NS 250 ML IV SCH (21:20)
[2021-08-14 21:33] LABS: AMPHETAMINES LEVEL URINE NEGATIVE (NEGATIVE); BARBITURATES URINE NEGATIVE (NEGATIVE); BENZODIAZEPINES URINE NEGATIVE (NEGATIVE); CANNABINOIDS URINE NEGATIVE (NEGATIVE); COCAINE METABOLITE URINE NEGATIVE (NEGATIVE); METHADONE URINE NEGATIVE (NEGATIVE); OPIATES URINE NEGATIVE (NEGATIVE); PHENCYCLIDINE URINE NEGATIVE (NEGATIVE)
[2021-08-14] MEDS: NS 1,000 ML IV SCH (22:26)
--- NOTE | 2021-08-14 22:43 | REPVR ---
PROCEDURE INFORMATION: Exam: CT Abdomen And Pelvis With Contrast Exam date and time: 08/14/2021 10:02 PM Age: 76 years old Clinical indication: Mass, lump, or swelling; Lower; Additional info: Cervical CA TECHNIQUE: Imaging protocol: Computed tomography of the abdomen and pelvis with contrast. Radiation optimization: All CT scans at this facility use at least one of these dose optimization techniques: automated exposure control; mA and/or kV adjustment per patient size (includes targeted exams where dose is matched to clinical indication); or iterative reconstruction. Contrast material: ISOVUE 370; Contrast volume: 100 ml; Contrast route: INTRAVENOUS (IV); COMPARISON: CR PORTABLE CHEST X-RAY 08/14/2021 6:49 PM FINDINGS: Liver: Normal. No mass. Gallbladder and bile ducts: Normal. No calcified stones. No ductal dilation. Pancreas: Normal. No ductal dilation. Spleen: Normal. No splenomegaly. Adrenal glands: Normal. No mass. Kidneys and ureters: Multiple cysts in the right kidney with the largest measuring 1.6 cm in the midpole region. Multiple cysts in the left kidney with the largest measuring 1.8 cm at the upper pole. Stomach and bowel: Diverticulosis of the sigmoid colon. Appendix: No evidence of appendicitis. Intraperitoneal space: Unremarkable. No free air. No significant fluid collection. Vasculature: Unremarkable. No abdominal aortic aneurysm. Lymph nodes: Unremarkable. No enlarged lymph nodes. Urinary bladder: Unremarkable as visualized. Reproductive: There is lobulated large necrotic mass in bilateral vulva extending to the subcutaneous tissues measuring approximately 9.1 x 9.5 x 11 cm. Bones/joints: Right total hip arthroplasty. Chronic compression fractures of the thoracic and lumbar vertebra. Diffuse demineralization of the bones. Soft tissues: Unremarkable. 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 COMMENTS: Consistent with the [employer]'s Incidental Findings Committee white paper (J Am Vikas Radiol 2018): Any incidental renal lesion less than 1 cm or classified as too small to characterize, or any incidental cystic renal lesion characterized as simple-appearing, is likely benign. No follow-up imaging is recommended for these lesions per consensus recommendations based on imaging criteria. Electronically signed by: Manolo Duval On 08/14/2021 22:43:11 PM
[2021-08-14] MEDS: PIPERACILLIN/TAZOBACTAM SOD 4.5 GM in D5W MINI-BAG PLUS 50 ML IV SCH (22:44)
--- NOTE | 2021-08-14 22:49 | REPVR ---
PROCEDURE INFORMATION: Exam: CT Chest With Contrast; Diagnostic Exam date and time: 08/14/2021 10:02 PM Age: 76 years old Clinical indication: Other: Cervical CA TECHNIQUE: Imaging protocol: Diagnostic computed tomography of the chest with contrast. Radiation optimization: All CT scans at this facility use at least one of these dose optimization techniques: automated exposure control; mA and/or kV adjustment per patient size (includes targeted exams where dose is matched to clinical indication); or iterative reconstruction. Contrast material: ISOVUE 370; Contrast volume: 100 ml; Contrast route: INTRAVENOUS (IV); COMPARISON: CR PORTABLE CHEST X-RAY 08/14/2021 6:49 PM FINDINGS: Lungs: Calcified granuloma at the left lung base. Pleural spaces: Unremarkable. No pneumothorax. No pleural effusion. Heart: Unremarkable. No cardiomegaly. No pericardial effusion. Aorta: Unremarkable. No aortic aneurysm. Lymph nodes: Unremarkable. No enlarged lymph nodes. Diaphragm: Moderate size hiatal hernia. Bones/joints: Unremarkable. No acute fracture. Soft tissues: Unremarkable. IMPRESSION: No acute abnormality. Moderate size hiatal hernia. Electronically signed by: Manolo Duval On 08/14/2021 22:48:32 PM
[2021-08-14] MEDS ORDERED: VANCOMYCIN HCL 750 MG, VIAL MATE ADAPTER 1 EACH in NS 250 ML IV ONE (23:00)
[2021-08-14] MEDS ORDERED: VITMTA PO (23:07)
[2021-08-14] MEDS ORDERED: HOME MED LIST COMPLETE! XX SCH (23:10)
[2021-08-15] MEDS ORDERED: VANCOMYCIN HCL 500 MG in D5W MINI-BAG PLUS 100 ML IV ONE ×2
[2021-08-15] MEDS: HEPARIN SOD (PORCINE) 5000UNITS/ML 1ML VIAL/SYRINGE SC SCH ×3 (00:52→21:04)
[2021-08-15] MEDS ORDERED: LORazepam 2 MG/ML VIAL IV PRN (01:00)
[2021-08-15 02:30] VITALS: BP 116/59
[2021-08-15] MEDS: PIPERACILLIN/TAZOBACTAM SOD 4.5 GM in D5W MINI-BAG PLUS 50 ML IV SCH ×4 (02:30→23:05)
[2021-08-15 03:04] LABS: FERRITIN 76 NG/ML (8-252); IRON (FE) 15 UG/DL (50-170); PERCENT SATURATION 6.9 % (13.2-45.0); PHOSPHORUS LEVEL 3.4 MG/DL (2.5-4.9); TOTAL IRON BINDING CAPACITY 216 UG/DL (250-450)
[2021-08-15 04:00] VITALS: BP 103/56
[2021-08-15] MEDS: NS 1,000 ML IV SCH ×3 (06:07→21:59)
[2021-08-15 06:21] LABS: ALBUMIN 2.4 GM/DL (3.2-5.2); ALT/SGPT 11 U/L (12-78); BLOOD UREA NITROGEN 13 MG/DL (7-18); CALCIUM LEVEL 11.6 MG/DL (8.8-10.2); CARBON DIOXIDE LEVEL 33 MEQ/L (21-32); CHLORIDE LEVEL 108 MEQ/L (98-107); CREATININE FOR GFR 0.81 MG/DL (0.55-1.30); GLOMERULAR FILTRATION RATE > 60.0 (>39); GLUCOSE, FASTING 107 MG/DL (70-100); POTASSIUM SERUM 3.8 MEQ/L (3.5-5.1); SODIUM LEVEL 141 MEQ/L (136-145); TOTAL PROTEIN 5.9 GM/DL (6.4-8.2)
[2021-08-15 08:00] VITALS: BP 103/56
[2021-08-15] MEDS: levETIRAcetam 250MG TABLET (KEPPRA) PO SCH ×2 (08:28→21:04)
[2021-08-15] MEDS: ATORVASTATIN 20 MG TAB PO SCH (08:28)
[2021-08-15] MEDS: VANCOMYCIN HCL 750 MG, VIAL MATE ADAPTER 1 EACH in NS 250 ML IV SCH ×2 (08:28→21:03)
[2021-08-15] MEDS: atenoloL 25 MG TAB PO SCH (08:29)
[2021-08-15] MEDS ORDERED: PREVNAR 13 VACCINE SYRINGE IM ONE (09:00)
[2021-08-15] MEDS ORDERED: FLUBLOK(EGG FREE)(QUAD)INFLUENZA VACC 0.5ML SYRINGE 18YRS & OLDER IM ONE (09:00)
[2021-08-15 09:36] LABS: FOLATE > 24.0 NG/ML (>5.4)
[2021-08-15 09:42] LABS: TOTAL 25(OH) VITAMIN D 56.6 NG/ML (30.0-100.0)
[2021-08-15 09:43] LABS: PTH INTACT < 6.3 PG/ML (18.5-88.0); VITAMIN B12 LEVEL 434 PG/ML (247-911)
[2021-08-15 11:30] VITALS: BP 96/58
[2021-08-15 16:00] VITALS: BP 90/52
--- NOTE | 2021-08-15 17:11 | CR.PDOC ---
General Date of Consultation: Aug 15, 2021 Consultation REASON FOR CONSULTATION/CHIEF COMPLAINT: Vulvar Mass. HISTORY OF PRESENT ILLNESS: Pt is a 76yo who was brought into the hospital by EMS after having a witnessed seizure at home. Upon evaluation in the ER, she was found to have a large, fungating vulvar mass. Unfortunately, the patient is a poor historian due a diagnosis of dementia and is unable to give a proper HPI. Pt states that she is unsure how long the mass has been there because she 'doesn't really look down there.' She denies any pain but does endorse that she feels itchy sometimes. She denies any vaginal bleeding or abnormal discharge. She denies any difficulty voiding. I spoke on the phone with patient's daughter, Siomara, who states that she just moved here from [place] about a month ago and has been living with her mother during that time. She states that the patient has never complained about anything but that she has noticed blood stains in her underwear. She states that the patient changes her underwear at least three times a day and believes that this is due to having vaginal discharge. Per the Siomara, the patient has stated that if anything like this were to happen, her wishes were to let it run it's course and that she would not be interested in treatment. 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 However, if the plan would be no treatment, then a biopsy would probably not be necessary. Discussed that the typical treatment for vulvar cancer is a radical vulvectomy and what that would entail. Her daughter states that they would not want to put her mother through that kind of procedure. We discussed comfort care measures including lidocaine jelly PRN. The family is agreeable with this plan. ALLERGIES: Please see below. HOME MEDICATIONS: Please see below. PAST MEDICAL/ SURGICAL HISTORY: (8 vaginal deliveries), Seizure disorder (2012), sinus node dysfunction/ sinus arrest s/p dual chamber pacemaker placement (2012), essential HTN, DLP, Bakers cyst at left knee, Osteoporosis (chronic thoracic and lumbar vertebral fx), newly diagnosed bilateral vulvar masses, right total hip arthroplasty (2012) FAMILY HISTORY: (per chart review) mother had cancer, her oldest daughter and youngest son , three of her children have seizure disorder (one of them developed the seizures after a head injury) SOCIAL HISTORY: She quit smoking, one of her sons recently moved in with her, 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 HOME MEDICATIONS: Please see below. PHYSICAL EXAMINATION: VITAL SIGNS: Please see below. GENERAL APPEARANCE: sleeping soundly. Alert upon waking. Pleasant and quality compliance coordinator perative. Poor historian VULVA: Large, nonulcerative, fungating mass encompassing bilateral labia majora. Nontender to palpation. No obvious areas of ulceration. LABORATORY DATA: Please see below. IMAGING: CT A/P - IMPRESSION: Lobulated large necrotic mass involving bilateral vulva measuring 9.1 x 9.5 x 11 cm representing neoplastic lesion. ASSESSMENT/PLAN: 76yo with what appears to be vulvar cancer After conversation with Siomara, patient's daughter and primary transitions rn care coordinator, plan is for comfort care Discussed option to biopsy for definitive tissue diagnosis but, without plan for further treatment, this is largely for information only Discussed the use of lidocaine jelly for comfort if patient complains of vulvar pain Monitor for urinary retention symptoms if lesion encroaches on urethra If goals of care change and family is interested in treatment, would recommend evaluation by PATIENT SERVICES SPECIALIST oncology. Please do not hesitation to call with questions or concerns. Vital Signs/I&O Vital Signs Date Time Temp Pulse Resp B/P (MAP) Pulse Ox O2 Delivery O2 Flow Rate FiO2 08/15/21 11:30 97.2 80 16 96/58 (71) 94 Room Air I&O- Last 24 Hours up to 6 AM 08/15/21 06:00 Intake Total 1285 ml Balance 1285 ml Laboratory Data Labs 24H Laboratory Tests 2 08/14/21 19:23: Immature Granulocyte % (Auto) 0.6, Neutrophils (%) (Auto) 91.8H, Lymphocytes (%) (Auto) 4.6L, Monocytes (%) (Auto) 2.6, Eosinophils (%) (Auto) 0.0, Basophils (%) (Auto) 0.4, Neutrophils # (Auto) 14.1H, Lymphocytes # (Auto) 0.7L, Monocytes # (Auto) 0.4, Eosinophils # (Auto) 0.0, Basophils # (Auto) 0.1, Nucleated Red Blood Cells % (auto) 0.0, Anion Gap 6L, Glomerular Filtration Rate > 60.0, Lactic Acid Level 1.4, Calcium Level 11.1H, Phosphorus Level 3.4, Iron Level 15L, Total Iron Binding Capacity 216L, Transferrin % Saturation 6.9L, Ferritin 76, Total Bilirubin 0.7, Direct Bilirubin 0.2, Aspartate Amino Transf (AST/SGOT) 11, Alanine Aminotransferase (ALT/SGPT) 15, Alkaline Phosphatase 104, Total Creatine Kinase 18L, Creatine Kinase MB < 1.0, Creatine Kinase MB Relative Index 5.56H, Troponin I < 0.02, Total Protein 6.6, Albumin 2.7L, Albumin/Globulin Ratio 0.7L, Folate > 24.0, Thyroid Stimulating Hormone (TSH) 3.120, Prolactin 6.0, Salicylates Level < 1.7L, Acetaminophen Level < 2.0L, Ethyl Alcohol Level < 0.003 08/14/21 19:35: Coronavirus (COVID-19)(PCR) NEGATIVE, Influenza Type A (RT-PCR) NEGATIVE, Influenza Type B (RT-PCR) NEGATIVE, Respiratory Syncytial Virus (PCR) NEGATIVE 08/14/21 20:55: Urine Color YELLOW, Urine Appearance HAZY, Urine pH 6.0, Urine Specific [place] 1.009, Urine Protein NEGATIVE, Urine Glucose (UA) NEGATIVE, Urine Ketones NEGATIVE, Urine Blood NEGATIVE, Urine Nitrite NEGATIVE, Urine Bilirubin NEGATIVE, Urine Urobilinogen 0.2, Urine Leukocyte Esterase 1+H, Urine WBC (Auto) 8H, Urine RBC (Auto) 3, Urine Hyaline Casts (Auto) 0, Urine Bacteria (Auto) 1+H, Urine Squamous Epithelial Cells 2, Urine Mucus (Auto) SMALL, Urine Sperm (Auto) , Urine Opiates Screen NEGATIVE, Urine Methadone Screen NEGATIVE, Urine Barbiturates Screen NEGATIVE, Urine Phencyclidine Screen NEGATIVE, Urine Amphetamines Screen NEGATIVE, Urine Benzodiazepines Screen NEGATIVE, Urine Cocaine Metabolite Screen NEGATIVE, Urine Cannabinoids Screen NEGATIVE 08/15/21 05:22: Anion Gap 0L, Glomerular Filtration Rate > 60.0, Calcium Level 11.6H, Total Bilirubin 1.0, Aspartate Amino Transf (AST/SGOT) 9, Alanine Aminotransferase (ALT/SGPT) 11L, Alkaline Phosphatase 91, Total Protein 5.9L, Albumin 2.4L, Albumin/Globulin Ratio 0.7L, Total Protein (PEP) 5.9L, Prealbumin 10.6L, Vitamin B12 Level 434, 25-Hydroxy Vitamin D Total 56.6, Parathyroid Hormone (Intact) < 6.3L 08/15/21 15:42: CBC/BMP Laboratory Tests 08/14/21 19:23 08/15/21 05:22 Microbiology Microbiology 08/14/21 Blood Culture, Received Pending 08/14/21 Urine Culture, Received Pending Allergies Coded Allergies: No Known Allergies (Unverified , 08/15/13) Home Medications Scheduled Atenolol (Atenolol) 25 Mg Tablet, 25 MG PO DAILY, (Reported) Atorvastatin Calcium (Atorvastatin Calcium) 40 Mg Tablet, 40 MG PO DAILY, (Reported) Multivitamins (Thera M Plus Tablet) 1 Each Tablet, 1 TAB PO DAILY, (Reported) KAYLEN MONTERO MD Aug 15, 2021 17:11
[2021-08-15] MEDS ORDERED: NS 1,000 ML IV ONE (17:35)
--- NOTE | 2021-08-15 19:20 | IPNPDOC ---
Date Seen The patient was seen on 08/15/21. Progress Note SUBJECTIVE: seen at bedside. Patient is poor historian, dementia. Denies CP, palpitations, n/v/d. Questioned about large invasive fungating vulvar mass. Patient states that she changes her underwear frequently, but does not really examine area. OBJECTIVE PHYSICAL EXAMINATION: VITAL SIGNS: please see below General: NAD, comfortable HEENT: PERRLA, EOMI, sclerae clear Neck: supple, normal ROM, no JVD Respiratory: lungs CTAB, no wheeze, no rales, no crackles CVS: RRR, normal S1, S2, no murmurs Abdo: soft, no masses, no hepatosplenomegaly, BS+, no rebound tenderness Extremities: no edema, pulses 2+ : external exam performed, chaperoned by Lexi Madrid. Large invasive fungating vulvar mass affecting bilateral vulva. Bleeding. MSK: no joint deformities, normal ROM Neuro: no focal neuro deficits, moving all 4 extremities, CN2-12 intact. Strength 5/5 in all 4 extremities. No nystagmus. Psych: calm, cooperative, AAO x 3 LABORATORY DATA, IMAGING STUDIES, MICROBIOLOGY: Please see below. ASSESSMENT: is a 76 yr old F w a hx of Seizure disorder, sinus node dysfunction/ sinus arrest s/p dual chamber pacemaker placement, HTN, DLP, Osteoporosis & newly diagnosed bilateral vulvar masses who is admitted for evaluation of seizures. PLAN: 1 Seizure disorder - found to have tonic clonic sz at home by son - not on medication at home - d/w Dr. Munoz, has been seen in clinic since first sz in 2012, missed her appointment 2 days ago - recs to start keppra 500 mg PO bid - ordered eeg - check CT head w IV contrast to assess for mets (has pacemaker, unable to obtain MRI) 2 Encephalopathy - has underlying dementia - possibly post-ocatal 3 SIRS - f/u blood cx, UA and lactic acid 4 Vulvar Masses - please see CT above - consulted Dr. Peraza - plan was d/w patient and family. Prefer to do comfort treatment - lidocaine jelly. - if family wishes to proceed with workup, to refer to Gyne Onc 5 Normocytic Hypochromic anemia - f/u Iron studies and stool occult 6 Mild Hypercalcemia - f/u Phosphorus, PTH / repeat Ca++ / start NS @ 125ml/H / low Ca diet 7 Essential HTN -atenolol 8 DLP -c/w statin 9 Osteoporosis -Diagnosis confirmed because of her history of multiple chronic vertebral fractures -She also has high serum calcium Plan: f/u serum Vitamin D / because she has vertebral fractures we will check SPEP to screen for plasmacytoma or MM / start Oscal / she will need to with her PCP for a DEXA Scan (if her T score is -3 or lower, in addition to a bisphos phonate she will need to be started on Teriparatide) 10 Sarcopenia BMI is 19.6 DVT px w Heparin Disposition: home after more than 2 midnights stay (kimberly Farley [phone]) VS, I&O, 24H, Fishbone Vital Signs/I&O Vital Signs Date Time Temp Pulse Resp B/P (MAP) Pulse Ox O2 Delivery O2 Flow Rate FiO2 08/15/21 16:00 97.8 62 18 90/52 (65) 95 Room Air I&O- Last 24 Hours up to 6 AM 08/15/21 06:00 Intake Total 1285 ml Balance 1285 ml Laboratory Data 24H LABS Laboratory Tests 2 08/14/21 19:23: Immature Granulocyte % (Auto) 0.6, Neutrophils (%) (Auto) 91.8H, Lymphocytes (%) (Auto) 4.6L, Monocytes (%) (Auto) 2.6, Eosinophils (%) (Auto) 0.0, Basophils (%) (Auto) 0.4, Neutrophils # (Auto) 14.1H, Lymphocytes # (Auto) 0.7L, Monocytes # (Auto) 0.4, Eosinophils # (Auto) 0.0, Basophils # (Auto) 0.1, Nucleated Red Blood Cells % (auto) 0.0, Anion Gap 6L, Glomerular Filtration Rate > 60.0, Lactic Acid Level 1.4, Calcium Level 11.1H, Phosphorus Level 3.4, Iron Level 15L, Total Iron Binding Capacity 216L, Transferrin % Saturation 6.9L, Ferritin 76, Total Bilirubin 0.7, Direct Bilirubin 0.2, Aspartate Amino Transf (AST/SGOT) 11, Alanine Aminotransferase (ALT/SGPT) 15, Alkaline Phosphatase 104, Total Creatine Kinase 18L, Creatine Kinase MB < 1.0, Creatine Kinase MB Relative Index 5.56H, Troponin I < 0.02, Total Protein 6.6, Albumin 2.7L, Albumin/Globulin Ratio 0.7L, Folate > 24.0, Thyroid Stimulating Hormone (TSH) 3.120, Prolactin 6.0, Salicylates Level < 1.7L, Acetaminophen Level < 2.0L, Ethyl Alcohol Level < 0.003 08/14/21 19:35: Coronavirus (COVID-19)(PCR) NEGATIVE, Influenza Type A (RT-PCR) NEGATIVE, Influ avery Type B (RT-PCR) NEGATIVE, Respiratory Syncytial Virus (PCR) NEGATIVE 08/14/21 20:55: Urine Color YELLOW, Urine Appearance HAZY, Urine pH 6.0, Urine Specific [place] 1.009, Urine Protein NEGATIVE, Urine Glucose (UA) NEGATIVE, Urine Ketones NEGATIVE, Urine Blood NEGATIVE, Urine Nitrite NEGATIVE, Urine Bilirubin NEGATIVE, Urine Urobilinogen 0.2, Urine Leukocyte Esterase 1+H, Urine WBC (Auto) 8H, Urine RBC (Auto) 3, Urine Hyaline Casts (Auto) 0, Urine Bacteria (Auto) 1+H, Urine Squamous Epithelial Cells 2, Urine Mucus (Auto) SMALL, Urine Sperm (Auto) , Urine Opiates Screen NEGATIVE, Urine Methadone Screen NEGATIVE, Urine Barbiturates Screen NEGATIVE, Urine Phencyclidine Screen NEGATIVE, Urine Amphetamines Screen NEGATIVE, Urine Benzodiazepines Screen NEGATIVE, Urine Cocaine Metabolite Screen NEGATIVE, Urine Cannabinoids Screen NEGATIVE 08/15/21 05:22: Anion Gap 0L, Glomerular Filtration Rate > 60.0, Calcium Level 11.6H, Total Bilirubin 1.0, Aspartate Amino Transf (AST/SGOT) 9, Alanine Aminotransferase (ALT/SGPT) 11L, Alkaline Phosphatase 91, Total Protein 5.9L, Albumin 2.4L, Albumin/Globulin Ratio 0.7L, Total Protein (PEP) 5.9L, Prealbumin 10.6L, Vitamin B12 Level 434, 25-Hydroxy Vitamin D Total 56.6, Parathyroid Hormone (Intact) < 6.3L 08/15/21 15:42: Methicillin-Resist S.aureus DNA PCR DETECTEDA 08/15/21 18:40: Bedside Glucose (Misc Panel) 109 CBC/BMP Laboratory Tests 08/14/21 19:23 08/15/21 05:22 Microbiology Microbiology 08/14/21 Blood Culture, Received Pending 08/14/21 Urine Culture, Received Pending VERONICA PETERS MD Aug 15, 2021 19:20
[2021-08-15 20:00] VITALS: BP 104/56
--- NOTE | 2021-08-15 20:12 | ECGEPIP ---
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
[2021-08-15] MEDS ORDERED: ISOVUE-370 76% 100ML VIAL As Ordered ONE (22:24)
[2021-08-16] VITALS: BP 115/59
--- NOTE | 2021-08-16 01:12 | REPVR ---
PROCEDURE INFORMATION: Exam: CT Head With Contrast Exam date and time: 08/15/2021 10:11 AM Age: 76 years old Clinical indication: Other: ? Mass; Additional info: Assess for mass, has vulvur necrotic mass TECHNIQUE: Imaging protocol: Computed tomography of the head with intravenous contrast. Radiation optimization: All CT scans at this facility use at least one of these dose optimization techniques: automated exposure control; mA and/or kV adjustment per patient size (includes targeted exams where dose is matched to clinical indication); or iterative reconstruction. Contrast material: ISO; Contrast volume: 75 ml; Contrast route: INTRAVENOUS (IV); COMPARISON: CT Head without contrast 08/14/2021 7:00 PM FINDINGS: Brain: Redemonstration of mild generalized parenchymal atrophy and evidence of microvascular ischemic disease involving periventricular and subcortical white matter bilaterally. No enhancing intracranial masses. Cerebral ventricles: Unremarkable. No ventriculomegaly. Bones/joints: Unremarkable. No acute fracture. Paranasal sinuses: Visualized sinuses are unremarkable. No fluid levels. Mastoid air cells: Visualized mastoid air cells are well aerated. Soft tissues: Unremarkable. IMPRESSION: No enhancing intracranial masses. Electronically signed by: Ihsan Osorio On 08/16/2021 01:11:26 AM
[2021-08-16] MEDS ORDERED: LORazepam 2 MG/ML VIAL IV STA (03:08)
[2021-08-16] MEDS ORDERED: LORazepam 2 MG/ML VIAL IM STA (03:22)
[2021-08-16] MEDS: PIPERACILLIN/TAZOBACTAM SOD 4.5 GM in D5W MINI-BAG PLUS 50 ML IV SCH ×4 (04:19→22:22)
[2021-08-16] MEDS: NS 1,000 ML IV SCH ×3 (06:45→22:22)
[2021-08-16 08:00] VITALS: BP 116/62
[2021-08-16] MEDS: ATORVASTATIN 20 MG TAB PO SCH (10:04)
[2021-08-16] MEDS: levETIRAcetam 250MG TABLET (KEPPRA) PO SCH ×2 (10:05→20:05)
[2021-08-16] MEDS: atenoloL 25 MG TAB PO SCH (10:05)
[2021-08-16] MEDS: VANCOMYCIN HCL 750 MG, VIAL MATE ADAPTER 1 EACH in NS 250 ML IV SCH ×3 (10:06→20:03)
[2021-08-16] MEDS: HEPARIN SOD (PORCINE) 5000UNITS/ML 1ML VIAL/SYRINGE SC SCH ×2 (10:06→20:05)
[2021-08-16 10:51] LABS: BLOOD UREA NITROGEN 9 MG/DL (7-18); CALCIUM LEVEL 10.4 MG/DL (8.8-10.2); CARBON DIOXIDE LEVEL 27 MEQ/L (21-32); CHLORIDE LEVEL 111 MEQ/L (98-107); CREATININE FOR GFR 0.72 MG/DL (0.55-1.30); GLOMERULAR FILTRATION RATE > 60.0 (>39); GLUCOSE, FASTING 97 MG/DL (70-100); POTASSIUM SERUM 3.9 MEQ/L (3.5-5.1); SODIUM LEVEL 143 MEQ/L (136-145); VANCOMYCIN LEVEL TROUGH 12.7 UG/ML (10.0-20.0)
[2021-08-16 12:00] VITALS: BP 105/59
[2021-08-16 12:59] LABS: ALBUMIN 2.73 GM/DL (3.29-5.55); ALBUMIN % 46.2 % (55.8-66.1); ALPHA-1-GLOBULIN % 8.4 % (2.9-4.9); ALPHA-2-GLOBULINS 0.68 GM/DL (0.42-0.99); ALPHA-2-GLOBULINS % 11.5 % (7.1-11.8); BETA-1-GLOBULINS % 8.3 % (4.7-7.2); BETA-2-GLOBULINS % 6.3 % (3.2-6.5); GAMMA GLOBULIN % 19.3 % (11.1-18.8)
[2021-08-16 13:00] LABS: BETA-1-GLOBULINS 0.49 GM/DL (0.28-0.60); BETA-2-GLOBULINS 0.37 GM/DL (0.19-0.55); GAMMA GLOBULINS 1.14 GM/DL (0.65-1.58)
[2021-08-16] MEDS ORDERED: BACT800T5 PO (13:32)
[2021-08-16] MEDS ORDERED: KEPP250T5 PO (13:32)
[2021-08-16 16:00] VITALS: BP 105/56
[2021-08-16 16:01] LABS: HEMATOCRIT 30.7 % (36.0-47.0); HEMOGLOBIN 9.1 g/dl (12.0-15.5); MEAN CORPUSCULAR HEMOGLOBIN 24.4 pg (27.0-33.0); MEAN CORPUSCULAR HGB CONC 29.6 g/dl (32.0-36.5); MEAN CORPUSCULAR VOLUME 82.3 fl (80.0-96.0); PLATELET COUNT, AUTOMATED 334 10^3/uL (150-450); RED BLOOD COUNT 3.73 10^6/uL (4.00-5.40); WHITE BLOOD COUNT 10.6 10^3/uL (4.0-10.0)
--- NOTE | 2021-08-16 16:19 | EEG ---
ELECTROENCEPHALOGRAM DATE: 08/15/2021 REFERRING PHYSICIAN: Dr. Balbina Danielle. DIAGNOSIS: Seizure. EEG # [id number] HISTORY: Patient is a 76-year-old woman who was admitted to [facility] due to a recurrent seizure. She also has history of pacemaker placement. She is currently taking Keppra, vancomycin, Zosyn, atenolol, etc. TECHNICAL DESCRIPTION: This digital EEG was recorded by 21-scalp, ear, and two EKG electrodes and was reviewed in bipolar and referential montages following reformatting in 10-20 international electrode placement system. INTERPRETATION: Patient was noted to be in awake and drowsy states during this EEG. Rest and awake background rhythm consisted of well-formed posterior dominant rhythm with anterior/posterior gradient comprising of 8-9 Hz of activity measuring 15-20 microvolts in amplitude which was symmetric and reactive to eye opening. Attenuation of posterior dominant rhythm was seen during transition to drowsiness. Stage 1 and 2 sleep were reviewed and were symmetric bilaterally. Hyperventilation was not performed. Photic stimulation remained unremarkable. EKG revealed a paced rhythm. No focal, lateralizing, or epileptiform abnormalities were seen. No relevant clinical activity was noted. CONCLUSION: This EEG in awake, drowsy states, stage 1 and 2 sleep is within normal limits.
--- NOTE | 2021-08-16 17:07 | IPNPDOC ---
Subjective Date Seen The patient was seen on 08/16/21. Subjective Chief Complaint/HPI Mrs. Barnes is a 76-year-old female with dementia who presents with seizure and invasive fungating vulvar mass. Patient was seen this morning, denies chest pain or dyspnea. I tried to reach out to patient's son, Miguelito, and I got voicemail. I tried to reach out to patient's daughter, Glenny Bolden ([phone]), and it was busy. PFS made it known to me that the plan with hospice Home next week. Patient at this time is still full code. We will continue with medical management and transition to home hospice next week. Otherwise I reached out to neurology, continue Keppra. Objective Physical Examination General Exam: Positive: Alert, Cooperative Eye Exam: Negative: Sclera icteric ENT Exam: Positive: Atraumatic Neck Exam: Positive: Supple Chest Exam: Positive: Clear to auscultation Heart Exam: Positive: Rate Normal, Regular Rhythm Abdomen Exam: Positive: Normal bowel sounds, Soft; Negative: Tenderness Extremity Exam: Negative: Edema Neuro Exam: Positive: Normal Speech Psych Exam: Positive: Mood NL Assessment /Plan Assessment Mrs. Barnes is a 76-year-old female with dementia who presents with seizure and invasive fungating vulvar mass. Spoke with neurology, who recommended starting Keppra. Otherwise, patient has a vulvar mass. WOOD CAR BUILDER was consulted. After discussion with family, family decided no treatment and to move towards comfort. I tried to reach out to them to confirm, but I was not able to speak with him. PFS tells me that family plans for home hospice next week. Until then, continue with treatment. Plan/VTE VTE Prophylaxis Ordered?: Yes Plan 1. Seizure disorder Patient has history of provoked seizure in the past Spoke with neurology, Dr. Munoz. Recommended Keppra CT head with IV contrast negative for mets. Unable for MRI due to pacemaker 2. Vulvar mass WOOD CAR BUILDER, Dr. Hernadez, was consulted, recommendations appreciated Family decided against evaluation of vulvar mass Family has decided to move towards hospice I will try to reach out to family to confirm 3. Hypertension Continue atenolol 4. Dyslipidemia Continue atorvastatin 5. SIRS/sepsis Patient had leukocytosis and tachycardia Pending blood culture results Urine culture appears contaminated Continue Zosyn and vancomycin day 2 6. DVT prophylaxis Heparin subcu Disposition: Home hospice next week. I will try to touch base with family to confirm. VS, I&O, 24H, Fishbone Vital Signs/I&O Vital Signs Date Time Temp Pulse Resp B/P (MAP) Pulse Ox O2 Delivery O2 Flow Rate FiO2 08/16/21 16:00 98.6 60 22 105/56 (72) 98 Room Air I&O- Last 24 Hours up to 6 AM 08/16/21 06:00 Intake Total 4560 ml Balance 4560 ml Laboratory Data 24H LABS Laboratory Tests 2 08/15/21 18:40: Bedside Glucose (Misc Panel) 109 08/15/21 19:04: Lactic Acid Level 1.4 08/16/21 10:15: Anion Gap 5L, Glomerular Filtration Rate > 60.0, Calcium Level 10.4H, Vancomycin Level Trough 12.7 08/16/21 15:30: Nucleated Red Blood Cells % (auto) 0.0 CBC/BMP Laboratory Tests 08/16/21 10:15 08/16/21 15:30 Microbiology Microbiology 08/15/21 Blood Culture, Received Pending 08/14/21 Blood Culture - Preliminary, Resulted No growth after 24 hours . All specim... 08/14/21 Urine Culture - Final, Complete CARLOSNICOLÁSRenata GOMES Aug 16, 2021 17:07
[2021-08-16 20:00] VITALS: BP 103/58
[2021-08-16 21:12] VITALS: BP 117/56
[2021-08-17] MEDS: PIPERACILLIN/TAZOBACTAM SOD 4.5 GM in D5W MINI-BAG PLUS 50 ML IV SCH ×2 (04:45→09:13)
[2021-08-17 05:05] VITALS: BP 116/74
[2021-08-17] MEDS: NS 1,000 ML IV SCH ×2 (05:59→09:14)
[2021-08-17 07:01] LABS: HEMATOCRIT 27.2 % (36.0-47.0); MEAN CORPUSCULAR HEMOGLOBIN 24.1 pg (27.0-33.0); MEAN CORPUSCULAR HGB CONC 29.4 g/dl (32.0-36.5); MEAN CORPUSCULAR VOLUME 81.9 fl (80.0-96.0); PLATELET COUNT, AUTOMATED 333 10^3/uL (150-450); RED BLOOD COUNT 3.32 10^6/uL (4.00-5.40); WHITE BLOOD COUNT 10.1 10^3/uL (4.0-10.0)
[2021-08-17 07:18] LABS: BLOOD UREA NITROGEN 12 MG/DL (7-18); CALCIUM LEVEL 10.2 MG/DL (8.8-10.2); CARBON DIOXIDE LEVEL 28 MEQ/L (21-32); CHLORIDE LEVEL 113 MEQ/L (98-107); CREATININE FOR GFR 0.77 MG/DL (0.55-1.30); GLOMERULAR FILTRATION RATE > 60.0 (>39); GLUCOSE, FASTING 119 MG/DL (70-100); POTASSIUM SERUM 3.6 MEQ/L (3.5-5.1); SODIUM LEVEL 143 MEQ/L (136-145)
[2021-08-17] MEDS ORDERED: POTASSIUM CHLORIDE 10MEQ SR TABLET PO ONE (08:15)
[2021-08-17] MEDS: VANCOMYCIN HCL 750 MG, VIAL MATE ADAPTER 1 EACH in NS 250 ML IV SCH (09:00)
[2021-08-17] MEDS: HEPARIN SOD (PORCINE) 5000UNITS/ML 1ML VIAL/SYRINGE SC SCH (09:12)
[2021-08-17] MEDS: ATORVASTATIN 20 MG TAB PO SCH (09:12)
[2021-08-17] MEDS: levETIRAcetam 250MG TABLET (KEPPRA) PO SCH (09:12)
[2021-08-17 09:13] VITALS: BP 116/74
[2021-08-17] MEDS: atenoloL 25 MG TAB PO SCH (09:13)
[2021-08-17] MEDS ORDERED: VANCOMYCIN HCL 1,000 MG, VIAL MATE ADAPTER 1 EACH in NS 250 ML IV SCH (15:00)
--- NOTE | 2021-08-17 21:42 | DS.PDOC ---
Discharge Summary General Date of Admission Aug 14, 2021 at 20:49 Date of Discharge Aug 17, 2021 Specialist/Consultants Involve [employer], Dr. Hernadez Discharge Summary PROCEDURES PERFORMED DURING STAY: None ADMITTING DIAGNOSES: 1. Seizure disorder 2. Encephalopathy 3. SIRS 4. Vulvar mass 5. Normocytic hypochromic anemia 6. Essential hypertension 7. Dyslipidemia 8. Osteoporosis DISCHARGE DIAGNOSES: 1. Seizure disorder 2. Encephalopathy 3. SIRS 4. Vulvar mass 5. Normocytic hypochromic anemia 6. Essential hypertension 7. Dyslipidemia 8. Osteoporosis COMPLICATIONS/CHIEF COMPLAINT: Encephalopathy. HISTORY OF PRESENT ILLNESS: Copied from admitting attending's H&P " The history was obtained from JUAN M Barrett, the patient couldnt recall all of the events leading to her arrival in the hospital. a 76 yr old F was diagnosed with a seizure disorder shortly after having right total hip arthroplasty in 2012. Based on consultation note it was felt that the seizures were likely due to the acute stress of the surgery and possibly sinus node dysfunction; the plan was to obtain an EEG and hold of starting seizure meds if the EEG was unremarkable. The discharge summary from the same admission was brief and didnt mention if the patient was discharged with anti- epileptic medications. Today, while seated in a chair son saw her have convulsions with repeated episodes of hitting the back of her head on the recliner that she was sitting in. When EMS arrived the patient was confused and her FSBS was 149. At the time of my assessment was alert and conversant, but had lapses in her memory. The FIELD GEOLOGIST informed Etienne that the patient had a large mass protruding out of her vagina; when I asked the patient about the mass she didnt seem aware of it but admitted to occasionally having vaginal bleeding. " HOSPITAL COURSE: During hospitalization, [employer] was consulted. They spoke with the family. There was a likelihood that this was cancer. If it was cancer, family did not want to pursue treatment. Since the goal was not treatment, biopsy would be deferred. [employer] discussed about comfort measures, and family was agreeable to comfort measures. I tried to call the family on Thursday, but I was not able to reach them. PFS told me that family had already reached out to hospice for home hospice. Otherwise, I touched base with neurology about patient's seizure. Recommended Keppra 500mg BID. Due to patient's pacemaker, we were not able to obtain MRI brain to look for mass. CT head with contrast was negative for enhancing mass. This morning, I was contacted by nurse. Daughter left a number and requested a phone call. I spoke with the daughter. Daughter confirmed that they want to purse home hospice. They have family at home and can provide 24/7 care. They requested to take patient home today as they have hospice home ready to come in on Thursday. I evaluated the patient. She was very pleasant and comfortable. Den ied any chest pain or dyspnea. She is orientated to location but not year. Patient was discharged home today. DISCHARGE MEDICATIONS: Please see below. ALLERGIES: Please see below. PHYSICAL EXAMINATION ON DISCHARGE: VITAL SIGNS: Please see below. GENERAL: Comfortable, in no apparent distress HEENT: Head normocephalic, atraumatic NECK: Supple CARDIOVASCULAR EXAMINATION: Regular rate and rhythm RESPIRATORY EXAMINATION: Lungs clear to auscultation bilaterally ABDOMINAL EXAMINATION: Soft, non-tender, normal bowel sounds EXTREMITIES: No pitting edema bilaterally NEUROLOGICAL EXAMINATION: A&Ox2 PSYCHIATRIC EXAMINATION: Normal mood and affect LABORATORY DATA: Please see below. IMAGING: Please see radiologist report on chart PROGNOSIS: Guarded ACTIVITY: As tolerated. DIET: As tolerated DISCHARGE PLAN: Home with hospice DISPOSITION: [facility]osp[facility] Home. DISCHARGE INSTRUCTIONS: 1. Follow up with Hospice on Thursday or Thursday 2. If desired, follow up with PCP within 1 week DISCHARGE CONDITION: Stable Total time spent on discharge planning, discharge summary, and medication reconciliation: 40 minutes Vital Signs/I&Os Vital Signs Date Time Temp Pulse Resp B/P (MAP) Pulse Ox O2 Delivery O2 Flow Rate FiO2 08/17/21 09:13 69 116/74 08/17/21 05:05 98.0 18 97 Room Air I&O- Last 24 Hours up to 6 AM 08/17/21 06:00 Intake Total 2735 ml Output Total 250 ml Balance 2485 ml Laboratory Data Labs 24H Laboratory Tests 2 08/17/21 06:42: Nucleated Red Blood Cells % (auto) 0.0, Anion Gap 2L, Glomerular Filtration Rate > 60.0, Calcium Level 10.2 08/17/21 08:38: Vancomycin Level Trough 12.9 08/17/21 12:00: Bedside Glucose (Misc Panel) 99 CBC/BMP Laboratory Tests 08/17/21 06:42 FSBS Laboratory Tests Test 08/17/21 12:00 Range/Units Bedside Glucose (Misc Panel) 99 83-110 MG/DL Microbiology Microbiology 08/15/21 Blood Culture - Preliminary, Resulted No Growth after 48 hours. All Specime... 08/14/21 Blood Culture - Preliminary, Resulted No Growth after 48 hours. All Specime... 08/14/21 Urine Culture - Final, Complete Discharge Medications Scheduled Atenolol (Atenolol) 25 Mg Tablet, 25 MG PO DAILY, (Reported) Atorvastatin Calcium (Atorvastatin Calcium) 40 Mg Tablet, 40 MG PO DAILY, (Reported) Levetiracetam (Keppra) 250 Mg Tablet, 500 MG PO BID Multivitamins (Thera M Plus Tablet) 1 Each Tablet, 1 TAB PO DAILY, (Reported) Sulfamethoxazole/Trimethoprim (Bactrim Ds Tablet) 1 Each Tablet, 1 TAB PO BID Allergies Coded Allergies: No Known Allergies (Unverified , 08/15/13) NICOLÁS GONZALEZ DO Aug 17, 2021 21:42
== END 2021-08-17 13:30 | disposition hospice, home (50) | DRG 101 ==
LOC: EDBD 18:22 → M ED 18:22 → M ED INP 20:49 → ENRESERV 08-15 01:54 → M PCU 08-15 02:20 → M MS5PR 08-16 21:02
PROVIDERS: ADMIT Internal Medicine; ATTEND Family Medicine
DX: G40.909 Epilepsy, unspecified, not intractable, without status epilepticus (principal); G93.40 Encephalopathy, unspecified; Z68.1 Body mass index [BMI] 19.9 or less, adult; I10 Essential (primary) hypertension; E78.5 Hyperlipidemia, unspecified; M81.0 Age-related osteoporosis without current pathological fracture; D64.9 Anemia, unspecified; E83.52 Hypercalcemia; F03.90 Unspecified dementia, unspecified severity, without behavioral disturbance, psychotic disturbance, mood disturbance, and anxiety; M62.84 Sarcopenia; Z95.0 Presence of cardiac pacemaker; Z96.641 Presence of right artificial hip joint; Z87.891 Personal history of nicotine dependence; Z79.899 Other long term (current) drug therapy; C51.9 Malignant neoplasm of vulva, unspecified; G83.84 Todd's paralysis (postepileptic)